=== PATIENT | male | born 1975 | race Asian ===

== ENCOUNTER 2017-07-01 21:01 | Emergency (ER) | payer SELFPAY ==
[~2017-07-01] VITALS: Ht 167.6 cm; Wt 59.1 kg
[2017-07-01 21:08] VITALS: Ht 167.6 cm; Wt 59.1 kg
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
[2017-07-01] MEDS ORDERED: WARF1TAB47 PO (22:39)
[2017-07-01] MEDS ORDERED: HYDR-902 PO (22:39)
[2017-07-01] MEDS ORDERED: PIPER-TAZO 3.375 GM IV (PMX) 50 ML IV ONE (23:00)
[2017-07-01] MEDS ORDERED: VANCOMYCIN 1 GM (PMX) 250 ML IVPB SCH (23:00)
[2017-07-01 23:11] LABS: BASOPHIL # 0.1 10^3/ul (0.0-0.1); BASOPHILS % 1.1 % (0.0-2.0); EOSINOPHILS # 0.3 10^3/ul (0.0-0.5); EOSINOPHILS % 2.2 % (0.0-7.0); HEMATOCRIT 37.1 % (42.0-52.0); HEMOGLOBIN 12.1 g/dl (14.0-18.0); LYMPHOCYTES # 2.6 10^3/ul (0.8-2.9); LYMPHOCYTES % 22.7 % (15.0-51.0); MEAN CORPUSCULAR HEMOGLOBIN 30.6 pg (29.0-33.0); MEAN CORPUSCULAR HGB CONC 32.6 g/dl (32.0-37.0); MEAN CORPUSCULAR VOLUME 93.7 fl (82.0-101.0); MONOCYTE # 0.5 10^3/ul (0.3-0.9); MONOCYTES % 4.1 % (0.0-11.0); NEUTROPHIL # 7.9 10^3/ul (1.6-7.5); NEUTROPHILS % 69.5 % (39.0-77.0); PLATELET COUNT 522 10^3/UL (140-415); RED BLOOD COUNT 3.96 10^6/ul (4.70-6.10); WHITE BLOOD COUNT 11.4 10^3/ul (4.8-10.8)
[2017-07-01 23:24] LABS: ADD UMIC YES; UR ASCORBIC ACID NEGATIVE (NEGATIVE); UR BACTERIA FEW /HPF (NONE SEEN); UR BILIRUBIN (Dip) NEGATIVE (NEGATIVE); UR BLOOD (Dip) 1+ mg/dL (NEGATIVE); UR CLARITY CLEAR (CLEAR); UR COLOR STRAW (YELLOW); UR GLUCOSE (Dip) NEGATIVE (NEGATIVE); UR KETONES (Dip) NEGATIVE (NEGATIVE); UR LEUKOCYTE ESTERASE (Dip) NEGATIVE Leu/ul (NEGATIVE); UR NITRITE (Dip) NEGATIVE (NEGATIVE); UR RBC 1 /HPF (0-5); UR TOTAL PROTEIN (Dip) NEGATIVE (NEGATIVE); UR UROBILINOGEN (Dip) NEGATIVE (NEGATIVE)
[2017-07-01 23:26] LABS: INR 0.87; PROTIME 11.9 Sec (11.9-14.9); PT RATIO 0.9
[2017-07-01 23:32] LABS: ALBUMIN 3.8 g/dl (3.3-4.9); ALBUMIN/GLOBULIN RATIO 0.97; BILIRUBIN,INDIRECT 0.1 mg/dl (0-1.1); BILIRUBIN,TOTAL 0.1 mg/dl (0.2-1.3); CALCIUM 9.2 mg/dl (8.4-10.2); CREATININE 0.63 mg/dl (0.61-1.24); POTASSIUM 3.9 mmol/L (3.5-5.1); TOTAL PROTEIN 7.7 g/dl (6.1-8.1)
[2017-07-01 23:42] LABS: BARBITURATES Negative (NEGATIVE); BENZODIAZEPINES Negative (NEGATIVE); CANNABINOIDS Negative (NEGATIVE); COCAINE Negative (NEGATIVE); OPIATES Negative (NEGATIVE)
[2017-07-02] MEDS ORDERED: SOD CHLORIDE 0.9% 1,830 ML IV ONE
--- NOTE | 2017-07-02 00:03 | RADRPT ---
PROCEDURE: X-ray right femur CLINICAL INDICATION: Pain in the right lower extremity, with new external fixation over the right lower extremity TECHNIQUE: AP and lateral views of the right femur. COMPARISON: Right leg series dated today, earlier in the day. FINDINGS: New external fixation over the right lower extremity from the mid femur to the leg, with screw fixat ors at the mid to distal 1/3 of the right femur. There is no evident hardware complication. There is a partial visualized fractures at the lateral and central right tibial plateau. IMPRESSION: External fixation with screw fixators at the mid to distal right femur, without evident hardware com plication. RPTAT: UU Physician Mark Anthony Date Time Electronically viewed and signed by Physician Mark Anthony on 07/02/2017 00:03 /
--- NOTE | 2017-07-02 00:05 | RADRPT ---
PROCEDURE: XR Chest. CLINICAL INDICATION: Cough. Possible sepsis. TECHNIQUE: Single frontal view of the chest was obtained COMPARISON: None FINDINGS: The heart and mediastinum are within normal limits. The lungs are clear. There is no pleural effusion or pneumothorax. The osseous structures are unremarkable. IMPRESSION: 1. No acute cardiopulmonary disease. RPTAT:AAJJ Physician Ronal Date Time Electronically viewed and signed by Tip Ruby Physician on 07/02/2017 00:04 QL/
--- NOTE | 2017-07-02 00:06 | RADRPT ---
PROCEDURE: XR Tibia and Fibula. CLINICAL INDICATION: Fracture TECHNIQUE: AP and lateral of the right tibia and fibula were obtained a total of 4 images sent to the PACS for review. COMPARISON: Right femur series 07/01/2017 FINDINGS: External fixation device component in the visualized distal femur is present. Obliquely oriented lat eral tibial plateau fracture is present. An additional comminuted mildly displaced proximal fibular neck fracture is seen. In the mid/distal tibial shaft are additional metallic external fixation reid carlee. The distal tibia is otherwise unremarkable as is the distal fibula. 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 Mild diffuse nonspecific soft tissue swelling is present. RPTAT:HJJR IMPRESSION: Metallic external fixation device within the visualized distal femur and of the mid/distal tibial sh aft stabilizes lateral right tibial plateau and comminuted proximal fibula shaft fractures, the ossi fic fracture fragments in satisfactory radiographic alignment. Physician Seema Date Time Electronically viewed and signed by Physician Seema on 07/02/2017 00:06 /
[2017-07-02] MEDS ORDERED: VANCOMYCIN 1 GM (PMX) 250 ML IVPB SCH (09:30)
[2017-07-02] MEDS: PIPER-TAZO 3.375 GM IV (PMX) 50 ML IV SCH ×3 (09:45→21:45)
[2017-07-02] MEDS ORDERED: OLANZAPINE 5 MG TAB PO ONE (20:30)
[2017-07-02] MEDS ORDERED: traZODone 50 MG TAB PO ONE (20:30)
[2017-07-03] MEDS: PIPER-TAZO 3.375 GM IV (PMX) 50 ML IV SCH ×3 (04:03→14:53)
[2017-07-03] MEDS ORDERED: NICOTINE (21 MG/24 HR) PATCH TRANSDERM ONE (13:00)
[2017-07-03] MEDS ORDERED: SULF1TAB31 PO (14:53)
[2017-07-03 18:30] VITALS: TEMP 98.9
[2017-07-03 19:20] VITALS: BP 142/98; PULSE 86; RESP 16
== END 2017-07-03 19:35 | disposition home or self-care (01) ==
LOC: FTE 21:01 → E/R 07-03 19:35
DX: A41.9 Sepsis, unspecified organism (principal); R65.20 Severe sepsis without septic shock; T81.4XXA Infection following a procedure, initial encounter; L03.115 Cellulitis of right lower limb; D64.9 Anemia, unspecified; F10.10 Alcohol abuse, uncomplicated; Y82.8 Other medical devices associated with adverse incidents
CPT/HCPCS: 36415; 71010; 73550; 73590; 80053; 80306; 80307; 81001; 83605; 85025; 85610; 85730; 87040; 87070; 87086; 96374; 96375; 96376; 99291; J2543; J3370; J7030